=== PATIENT | female | born 1945 | race Caucasian/White ===

== ENCOUNTER 2018-11-10 17:40 | Emergency (ER) | payer MEDICARE ==
--- NOTE | 2018-11-10 18:01 | Emergency Department Record ---
History of Present Illness - General Chief Complaint: Shortness of breath Stated Complaint: PHILIPPE,EXTREMITY SWELLING Time Seen by Provider: 11/10/18 17:52 Source: Patient Mode of Arrival: Wheelchair Limitations: No limitations - History of Present Illness Initial Comments: 73 yo female presents to ED for evaluation of progressively worsening shortness of breath symptoms for the past several weeks associated with lower extremity edema symptoms. Patient reports recent cardioversion for atrial fibrillation with Dr. No 4-6 weeks ago, reports that she does take Xarelto daily. Patient denies fevers, chills, cough, or recent illness. MD Complaint: Shortness of breath Onset/Timin -: Week(s) Severity: Moderate Consistency: Constant Improves With: Nothing Worsens With: Nothing Associated Symptoms: Edema Treatments Prior to Arrival: None - Related Data Home Oxygen Therapy: No Home Medications Medication Instructions Recorded Confirmed Last Taken Amiodarone HCl [Pacerone] 200 mg PO BID 11/10/18 11/10/18 Unknown Gabapentin [Neurontin] 300 mg PO Q8H 11/10/18 11/10/18 Unknown Rivaroxaban [Xarelto] 20 mg PO DAILY 11/10/18 11/10/18 Unknown Tramadol HCl 100 mg PO BID PRN 11/10/18 11/10/18 Unknown Allergies Allergy/AdvReac Type Severity Reaction Status Date / Time Latex, Natural Rubber Allergy Mild PT UNSURE Verified 11/10/18 17:58 OF REACTION Travel Screening - Travel/Exposure Within Last 30 Days Have you traveled within the last 30 days?: No Review of Systems Constitutional: Denies: Chills, Fever, Malaise, Night sweats Eyes: Denies: Eye discharge, Eye pain ENT: Denies: Congestion, Ear pain, Epistaxis Respiratory: Reports: Dyspnea. Denies: Cough Cardiovascular: Reports: Arrhythmia, Dyspnea on exertion, Edema. Denies: Chest pain, Palpitations, Paroxysmal nocturnal dyspnea Endocrine: Denies: Fatigue, Heat or cold intolerance Gastrointestinal: Denies: Abdominal pain, Nausea, Vomiting Genitourinary: Denies: Incontinence, Retention Musculoskeletal: Denies: Arthralgia, Back pain Skin: Denies: Bruising, Change in color Neurological: Denies: Abnormal gait, Confusion, Headache, Tingling, Tremors Psychiatric: Denies: Anxiety Hematological/Lymphatic: Reports: Easy bleeding, Easy bruising. Denies: Anemia, Blood Clots Past Medical History - SOCIAL HISTORY Smoking Status: Never smoker Alcohol Use: None Drug Use: None - RESPIRATORY Hx Respiratory Disorders: No - CARDIOVASCULAR Hx Cardio Disorders: Yes Hx Irregular Heartbeat: Yes (afib) - NEURO Hx Neuro Disorders: No - GI Hx GI Disorders: No - Hx Genitourinary Disorders: No - ENDOCRINE Hx Endocrine Disorders: No - MUSCULOSKELETAL Hx Musculoskeletal Disorders: No - PSYCH Hx Psych Problems: No - HEMATOLOGY/ONCOLOGY Hx Hematology/Oncology Disorders: Yes Hx Cancer: Yes (right lower leg) Hx Chemotherapy: No Hx Radiation Therapy: Yes Family Medical History Any Significant Family History?: No Physical Exam - General General Appearance: Alert, Oriented x3, Cooperative, Mild distress, Other (Pulse 40's with intermittent pauses (PACs vs. block)) Limitations: No limitations - Head Head exam: Atraumatic, Normocephalic, Normal inspection Head exam detail: negative: Abrasion, Contusion, Alan's sign, General tenderness, Hematoma, Laceration - Eye Eye exam: Normal appearance. negative: Conjunctival injection, Periorbital s welling, Periorbital tenderness, Scleral icterus - ENT Ear exam: negative: Auricular hematoma, Auricular trauma Nasal Exam: negative: Active bleeding, Discharge, Dried blood, Foreign body Mouth exam: negative: Drooling, Laceration, Muffled voice, Tongue elevation - Neck Neck exam: Normal inspection. negative: Meningismus, Tenderness - Respiratory Respiratory exam: Normal lung sounds bilaterally. negative: Respiratory distress, Rhonchi, Stridor, Wheezes - Cardiovascular Cardiovascular Exam: Bradycardia, Systolic murmur - GI/Abdominal GI/Abdominal exam: Soft. negative: Distended, Rebound, Rigid, Tenderness - Rectal Rectal exam: Deferred - exam: Deferred - Extremities Extremities exam: Pedal edema (1+ pedal edema bilaterally). negative: Calf tenderness, Tenderness - Back Back exam: Denies: CVA tenderness (R), CVA tenderness (L) - Neurological Neurological exam: Alert, Normal gait, Oriented X3 - Psychiatric Psychiatric exam: Normal affect, Normal mood - Skin Skin exam: Normal color. negative: Abrasion Type of lesion: negative: abrasion Course Vital Signs 11/10/18 17:46 Pulse Rate 55 L Respiratory 18 Rate Blood Pressure 192/65 Pulse Ox 99 - Reevaluation(s) Reevaluation #1: 11/10/18 18:17 EKG: Sinus bradycardia 50 Normal axis, normal intervals No acute ST-T changes are present Reevaluation #2: 11/10/18 18:24 Initial laboratory studies were reviewed: Hbg 5.9 (11.9 08/29) Type/Screen ordered at this time. Reevaluation #3: 11/10/18 18:36 The remainder of the patient's laboratory studies were reviewed: BUN 52 Creatinine 1.5 GFR 36 Findings appear c/w upper GI bleeding, IV protonix ordered to infuse. Type/Screen pending Will initiate transfer for GI consultation and likely EGD tomorrow. Reevaluation #4: 11/10/18 18:48 Case was discussed with Dr. Decker, will accept transfer at this time. CXR: Cardiomegaly, congestive changes Reevaluation #5: 11/10/18 19:06 Bed assignment received. Lab called with Type/Screen results, positive for antibody screen. Will hold blood for now as the patient is ready for transfer. Medical Decision Making - Lab Data Result diagrams: 11/10/18 18:05 11/10/18 18:05 Critical Care Time Critical Care Time: Yes Total Critical Care Time: 45 Critical Care Time: Diagnosis and treatment of acute anemia and likely UGI bleed, type/cross for acute anemia and initiation of crossmatched blood, IV protonix administration EKG and laboratory interpretation. Disposition Disposition: Transfer Clinical Impression: Acute anemia, UGI bleed, Anticoagulated Disposition: Acute Care Hospital Transfer Transfer To: [facility] Reason For Transfer: GI consultation, SDU Accepting Physician: Brianne Time Discussed w/Accepting Physician: 18:49 Condition: (2) Stable Forms: Patient Portal Access Time of Disposition: 18:49 Quality - Quality Measures Quality Measures: N/A - Blood Pressure Screening Does Patient Have Any of the Following: Active Dx of HTN Blood Pressure Classification: Hypertensive Reading Systolic Measurement: 192 Diastolic Measurement: 65 Screening for High Blood Pressure: Patient Exclusion, Hx of HTN [G9744]
[2018-11-10 18:13] LABS: ABSOLUTE NEUTROPHIL COUNT 5.03; BASO % 0.3 % (0-6); EOS % 2.2 % (0-6); GRAN % 79.5 % (47-80); HEMATOCRIT 20.6 % (35.0-47.0); LYMPH % 7.1 % (16-45); MEAN CELL VOLUME 92.8 fl (81-97); MEAN CORPUSCULAR HGB CONC 28.6 g/dl (32-36); MEAN PLATELET VOLUME 10.4 fl (7.4-10.4); MONO % 10.9 % (0-9); PLATELET COUNT 192 K/uL (130-400); RED BLOOD COUNT 2.22 M/uL (3.80-5.40); RED CELL DISTRIBUTION WIDTH 17.1 % (11.5-14.5); WHITE BLOOD COUNT W/O DIFF 6.3 K/uL (4.2-12.2)
[2018-11-10 18:21] LABS: MEAN CORPUSCULAR HEMOGLOBIN 26.5 pg (27-33)
[2018-11-10 18:22] LABS: HEMOGLOBIN 5.9 gm/dl (11.6-16.0)
[2018-11-10 18:23] LABS: BLOOD UREA NITROGEN 52 mg/dL (8-23); CREATININE 1.5 mg/dL (0.5-0.9); EST GLOMERULAR FILTRATION RATE 36 mL/min
[2018-11-10 18:24] LABS: TOTAL PROTEIN 5.8 g/dL (6.6-8.7)
[2018-11-10 18:26] LABS: GLUCOSE,RANDOM 175 mg/dL (74-109)
[2018-11-10 18:28] LABS: ALT/SGPT 38 U/L (<33)
[2018-11-10 18:29] LABS: ALB/GLOB RATIO 1.4 (1.1-1.8); ALBUMIN 3.4 g/dL (4.0-5.0); ALKALINE PHOSPHATASE 78 U/L (35-104); AST/SGOT 41 U/L (10.0-35.0)
[2018-11-10] MEDS ORDERED: PANTOPRAZOLE SODIUM IV 40 MG VIAL IVP ONE (18:35)
[2018-11-10 19:08] LABS: ABO GROUP O; ANTIBODY SCREEN POSITIVE (NEGATIVE); RH TYPE POSITIVE
--- NOTE | 2018-11-12 10:00 | RADIOLOGY REPORT ---
EXAM: CHEST, TWO VIEWS HISTORY: SHORTNESS OF BREATH. TECHNIQUE: Two views of the chest were obtained. Comparison: 07/26/08. FINDINGS: There has been an interval increase in cardiac size with moderate cardiomegaly. There is mild vascular distention. There is suggestion of early interstitial edema. IMPRESSION: CARDIOMEGALY AND CONGESTIVE FAILURE. JOB NUMBER: [id number] MTDD
== END 2018-11-10 19:38 | disposition short-term general hospital (02) ==
LOC: ER 17:40
DX: K92.2 Gastrointestinal hemorrhage, unspecified (principal); D63.8 Anemia in other chronic diseases classified elsewhere; R06.02 Shortness of breath; R60.0 Localized edema; I48.91 Unspecified atrial fibrillation; I10 Essential (primary) hypertension; Z79.01 Long term (current) use of anticoagulants
CPT/HCPCS: 71046; 80053; 83880; 84484; 85025; 86850; 86900; 86901; 93005; 93010; 96374; 99291; C9113

== ENCOUNTER 2019-06-01 15:37 | Emergency (ER) | payer MEDICARE ==
--- NOTE | 2019-06-01 17:23 | Emergency Department Record ---
History of Present Illness - General Chief Complaint: Hypotension Stated Complaint: HYPERTENSION,VERTIGO,SOB Time Seen by Provider: 06/01/19 17:17 Source: Patient Mode of Arrival: Ambulatory - History of Present Illness Initial Comments: patient states black stools in the last couple of day and seen in the office by Dr Nina and Arti and her hg is 6. drawn 2 days ago and she is SOB. She went to her start up specialist Dr. Oneal RHODES and they oanh her blood and found alow hg and sent to Dr Nina who sent her to the ED. Patient has atrial fib and on xarelto. She fell one week ago with bruising left arm and right flank Onset/Timin -: Week(s) Timing: Unsure Associated Symptoms: Shortness of breath, Weakness - [place] Coma Scale Eye Response: (4) Open spontaneously Motor Response: (6) Obeys commands Verbal Response: (5) Oriented [place] Total: 15 - Related Data Home Medications Medication Instructions Recorded Confirmed Last Taken Alprazolam [Xanax] 0.25 mg PO Q8H 06/01/19 06/01/19 05/31/19 Zolpidem Tartrate [Ambien] 10 mg PO QHS 06/01/19 06/01/19 05/31/19 Allergies Allergy/AdvReac Type Severity Reaction Status Date / Time Latex, Natural Rubber Allergy Mild PT UNSURE Verified 06/01/19 16:35 OF REACTION Travel/Exposure Screening - Travel/Exposure Within Last 30 Days Have you traveled within the last 30 days?: No - Travel/Exposure Within Last Year Have you traveled outside the [place] in the last year?: No - Additonal Travel/Exposure Details Have you been exposed to anyone with a communicable illness?: No - Travel Symptoms Symptom Screening: None Review of Systems Reviewed: No additional complaints except as noted below Constitutional: Reports: As per HPI. Denies: Chills, Fever, Malaise, Night sweats, Weakness, Weight change Eyes: Reports: As per HPI. Denies: Eye discharge, Eye pain, Photophobia, Vision change ENT: Reports: As per HPI. Denies: Congestion, Dental pain, Ear pain, Epistaxis, Hearing loss, Throat pain Respiratory: Reports: As per HPI. Denies: Cough, Dyspnea, Hemoptysis, Stridor, Wheezes Cardiovascular: Reports: As per HPI. Denies: Arrhythmia, Chest pain, Dyspnea on exertion, Edema, Murmurs, Orthopnea, Palpitations, Paroxysmal nocturnal dyspnea, Rheumatic Fever, Syncope Endocrine: Reports: As per HPI. Denies: Fatigue, Heat or cold intolerance, Polydipsia, Polyuria Gastrointestinal: Reports: As per HPI, Melena. Denies: Abdominal pain, Constipation, Diarrhea, Hematemesis, Hematochezia, Nausea, Vomiting Genitourinary: Reports: As per HPI. Denies: Abnormal menses, Discharge, Dyspareunia, Dysuria, Frequency, Hematuria, Incontinence, Retention, Urgency Musculoskeletal: Reports: As per HPI. Denies: Arthralgia, Back pain, Gout, Joint swelling, Myalgia, Neck pain Skin: Reports: As per HPI. Denies: Bruising, Change in color, Change in hair/nails, Lesions, Pruritus, Rash Neurological: Reports: As per HPI. Denies: Abnormal gait, Confusion, Headache, Numbness, Paresthesias, Seizure, Tingling, Tremors, Vertigo, Weakness Psychiatric: Reports: As per HPI. Denies: Anxiety, Auditory hallucinations, Depression, Homicidal thoughts, Suicidal thoughts, Visual hallucinations Hematological/Lymphatic: Reports: As per HPI. Denies: Anemia, Blood Clots, Easy bleeding, Easy bruising, Swollen glands Past Medical History - SOCIAL HISTORY Smoking Status: Never smoker Alcohol Use: None Drug Use: None - RESPIRATORY Hx Respiratory Disorders: No - CARDIOVASCULAR Hx Cardio Disorders: Yes Hx Irregular Heartbeat: Yes (afib) - NEURO Hx Neuro Disorders: No - GI Hx GI Disorders: No - Hx Genitourinary Disorders: No - ENDOCRINE Hx Endocrine Disorders: No - MUSCULOSKELETAL Hx Musculoskeletal Disorders: No - PSYCH Hx Psych Problems: No - HEMATOLOGY/ONCOLOGY Hx Hematology/Oncology Disorders: Yes Hx Cancer: Yes (right lower leg) Hx Chemotherapy: No Hx Radiation Therapy: Yes Family Medical History Any Significant Family History?: No Physical Exam - General General Appearance: Alert, Oriented x3, Cooperative, No acute distress - Head Head exam: Normal inspection - Eye Eye exam: Normal appearance, PERRL Pupils: Normal accommodation - ENT ENT exam: Normal exam, Mucous membranes moist, Normal external ear exam, Normal orophraynx, TM's normal bilaterally Ear exam: Normal external inspection. negative: External canal tenderness Nasal Exam: Normal inspection. negative: Discharge, Sinus tenderness Mouth exam: Normal external inspection, Tongue normal Teeth exam: Normal inspection. negative: Dental caries Throat exam: Normal inspection. negative: Tonsillar erythema, Tonsillar exudate - Neck Neck exam: Normal inspection, Full ROM. negative: Tenderness - Respiratory Respiratory exam: Normal lung sounds bilaterally. negative: Respiratory distress - Cardiovascular Cardiovascular Exam: Regular rate, Normal rhythm, Normal heart sounds - GI/Abdominal GI/Abdominal exam: Soft, Normal bowel sounds. negative: Tenderness - Rectal Rectal exam: Black stool, Heme (+) stool - exam: Deferred - Extremities Extremities exam: Normal inspection, Full ROM, Normal capillary refill. negative: Tenderness - Back Back exam: Reports: Normal inspection, Full ROM. Denies: Muscle spasm, Rash noted, Tenderness - Neurological Neurological exam: Alert, Normal gait, Oriented X3, Reflexes normal - Psychiatric Psychiatric exam: Normal affect, Normal mood - Skin Skin exam: Dry, Intact, Normal color, Warm Course Vital Signs 06/01/19 16:40 Temperature 98 F Pulse Rate 56 L Respiratory 20 Rate Blood Pressure 134/74 Pulse Ox [address] Levine and he accepted the patient and will transfer by ambulance - Reevaluation(s) Reevaluation #1: No GI here till thursday so will transfer to [facility] and will stop the xarelto 06/01/19 18:19 Reevaluation #2: Blood bank came to me and said lots of antibodies and don't have compatible blood so will give prothrombin protein concentrate to help with the xarelto she is taking. 06/01/19 19:05 Medical Decision Making - Data Complexity MDM Data: Labs Ordered and/or Reviewed (hemmoccult stool positive cone in ED) - Lab Data Result diagrams: 06/01/19 17:55 06/01/19 17:55 Disposition Clinical Impression: GI bleed Qualifiers: GI bleed type/associated pathology: melena Qualified Code(s): K92.1 - Melena Disposition: Acute Care Hospital Transfer Condition: (2) Stable Forms: Patient Portal Access Time of Disposition: 18:09 Quality - Quality Measures Quality Measures: N/A - Blood Pressure Screening Does Patient Have Any of the Following: No Blood Pressure Classification: Pre-Hypertensive BP Reading Systolic Measurement: 134 Diastolic Measurement: 74 Screening for High Blood Pressure: < Pre-Hypertensive BP, F/U Documented > [G2666] Pre-Hypertensive Follow-up Interventions: Referral to alternative/primary care provider.
[2019-06-01 18:06] LABS: ABSOLUTE NEUTROPHIL COUNT 4.94; HEMATOCRIT 25.1 % (35.0-47.0); MEAN CELL VOLUME 79.7 fl (81-97); MEAN CORPUSCULAR HGB CONC 27.1 g/dl (32-36); MEAN PLATELET VOLUME 10.9 fl (7.4-10.4); PLATELET COUNT 244 K/uL (130-400); RED BLOOD COUNT 3.15 M/uL (3.80-5.40); RED CELL DISTRIBUTION WIDTH 17.6 % (11.5-14.5); WHITE BLOOD COUNT W/O DIFF 6.4 K/uL (4.2-12.2)
[2019-06-01 18:09] LABS: MEAN CORPUSCULAR HEMOGLOBIN 21.5 pg (27-33)
[2019-06-01] MEDS ORDERED: 0.9 % SODIUM CHLORIDE 500ML 500 ML IV SCH (18:15)
[2019-06-01 18:20] LABS: BLOOD UREA NITROGEN 54 mg/dL (8-23); EST GLOMERULAR FILTRATION RATE 26 mL/min; INR 1.6; LIPASE 33 U/L (13-60); PARTIAL THROMBOPLASTIN TIME 33.7 SECONDS (24.5-39.1); PROTHROMBIN TIME (PATIENT) 16.1 SECONDS (9.5-12.1); TOTAL PROTEIN 7.4 g/dL (6.6-8.7)
[2019-06-01 18:22] LABS: GLUCOSE,RANDOM 99 mg/dL (74-109)
[2019-06-01 18:25] LABS: ALBUMIN 3.8 g/dL (4.0-5.0); ALKALINE PHOSPHATASE 116 U/L (35-104); ALT/SGPT 20 U/L (<33); AST/SGOT 29 U/L (10.0-35.0)
[2019-06-01 18:26] LABS: ANISOCYTOSIS 2+; HEMOGLOBIN 6.8 gm/dl (11.6-16.0); HYPOCHROMIA 2+; PLATELET ESTIMATE NORMAL (NORMAL)
[2019-06-01 18:29] LABS: BILIRUBIN,DIRECT < 0.2 mg/dL (0-0.3)
[2019-06-01] MEDS ORDERED: KCENTRA (PCC) 1,000 UNIT KIT IV ONE (19:03)
[2019-06-01 19:05] LABS: ABO GROUP O; RH TYPE POSITIVE
[2019-06-01 19:06] LABS: ANTIBODY SCREEN POSITIVE (NEGATIVE)
== END 2019-06-01 20:10 | disposition short-term general hospital (02) ==
LOC: ER 15:37
DX: K92.1 Melena (principal); R42 Dizziness and giddiness; R06.02 Shortness of breath; R53.1 Weakness; I48.91 Unspecified atrial fibrillation; Z79.01 Long term (current) use of anticoagulants
CPT/HCPCS: 80048; 80076; 83690; 85027; 85610; 85730; 86850; 86900; 86901; 96365; 99285